=== PATIENT | male | born 1985 | race Caucasian/White ===

== ENCOUNTER 2018-07-11 12:31 | Emergency (ER) | payer OTHER ==
[2018-07-11] MEDS ORDERED: TETANUS/DIPHTHERIA/PERTUSSIS 0.5 ML SYRINGE IM ONE (12:47)
[2018-07-11] MEDS ORDERED: BACITRACIN OINT TOP STA (12:56)
--- NOTE | 2018-07-11 12:59 | ED Physician Documentation ---
PD HPI UPPER EXT INJURY - Stated complaint Stated Complaint: RT HAND THUMB LAC - Chief complaint Chief Complaint: Ext Problem - History obtained from History obtained from: Patient - History of Present Illness Location: Right, Finger (thumb) Where injury occurred: Home Timing - onset: How many hours ago (1) Timing - duration: Hours (1) Timing - details: Abrupt onset Pain level max: 5 Pain level now: 4 Improved by: Rest Worsened by: Moving, Palpating Associated symptoms: No: Weakness, Numbness, Tingling, Swelling Recently seen: Not recently seen - Additonal information Additional information: Unknown last tetanus shot. A sprain came off of his car that he was working on, it is approximately 1 month old and fishhook to through his thumb. Review of Systems Constitutional: denies: Fever Neurologic: denies: Focal weakness, Numbness PD PAST MEDICAL HISTORY - Past Medical History Past Medical History: No - Past Surgical History Past Surgical History: No - Present Medications Home Medications: Ambulatory Orders Medication Instructions Recorded Confirmed Cephalexin [Keflex] 500 mg PO Q6H #28 capsule 07/11/18 - Allergies Allergies/Adverse Reactions: Allergies Allergy/AdvReac Type Severity Reaction Status Date / Time nickel Allergy Rash Verified 07/11/18 12:37 - Social History Does the pt have substance abuse?: No - Family History Family history: reports: Non contributory - Immunizations Immunizations are current?: No Immunizations: TDAP current <10years PD ED PE NORMAL - Vitals Vital signs reviewed: Yes - General General: Alert and oriented X 3, No acute distress - Derm Derm: Warm and dry - Extremities Extremities: Other (R thumb - puncture wound. NVI. FROM without pain. ) - Neuro Neuro: Alert and oriented X 3 Results - Vitals Vitals: Vital Signs - 24 hr 07/11/18 12:34 Temperature 36.7 C Heart Rate 79 Respiratory 14 Rate Blood Pressure 166/94 H O2 Saturation 98 Oxygen O2 Source Room air PD MEDICAL DECISION MAKING - ED course Complexity details: considered differential, d/w patient ED course: Left thumb, puncture wound to the nail. Minimal bleeding. Full range of motion without pain. The wound was cleansed, irrigated, bandaged. Will place on oral Keflex. Tdap given. Patient counseled regarding signs and symptoms for which I believe and urgent re-evaluation would be necessary. Patient with good understanding of and agreement to plan and is comfortable going home at this time This document was made in part using voice recognition software. While efforts are made to proofread this document, sound alike and grammatical errors may occur. Departure - Departure Disposition: 01 Home, Self Care Clinical Impression: Puncture wound of finger of left hand Qualifiers: Encounter type: initial encounter Qualified Code(s): S61.239A - Puncture wound without foreign body of unspecified finger without damage to nail, initial encounter Condition: Good Instructions: ED Wound Puncture General Follow-Up: your,doctor in 1 week for wound check [Other] Prescriptions: Cephalexin [Keflex] 500 mg PO Q6H #28 capsule Comments: Take all antibiotics until gone. Return if you worsen. Follow-up with your doctor within 1 week for a wound check. Return sooner if you notice redness, swelling or drainage from the wound. Change the dressing twice daily. Keep area clean. Discharge Date/Time: 07/11/18 13:09
[2018-07-11 14:23] VITALS: BP 166/94
== END 2018-07-11 13:09 | disposition home or self-care (01) ==
LOC: ED 12:31
DX: S61.031A Puncture wound without foreign body of right thumb without damage to nail, initial encounter (principal); W26.8XXA Contact with other sharp object(s), not elsewhere classified, initial encounter; Y93.9 Activity, unspecified; Y92.009 Unspecified place in unspecified non-institutional (private) residence as the place of occurrence of the external cause
CPT/HCPCS: 90471; 90715; 99283; A9270

== ENCOUNTER 2019-02-04 14:51 | Emergency (ER) | payer OTHER ==
[2019-02-04 14:58] VITALS: BP 161/114
--- NOTE | 2019-02-04 15:34 | ED Physician Documentation ---
History of Present Illness - Stated complaint Stated Complaint: DENTAL/MOUTH PX - Chief complaint Chief Complaint: Heent - Additonal information Additional information: This is a 33-year-old male Who presents with some pain in his right posterior molar. He states he had a lump in the back right of his mouth for quite a while ever since he had some wisdom tooth removed in the side you know. He started feeling a sharp fragment in the back of his mouth in the last several days, [place] and he has been on those see a dentist as of yet. He wanted to get it checked out today because he is worried that the fragment might break loose and he might swallow it. Review of Systems Constitutional: denies: Fever Throat: reports: Dental pain / toothache. denies: Sore throat PD PAST MEDICAL HISTORY - Past Surgical History Past Surgical History: No - Present Medications Home Medications: Ambulatory Orders Medication Instructions Recorded Confirmed Amox/Clav 875/125 [Augmentin] 1 each PO Q12H #14 tablet 02/04/19 Omeprazole 20 mg PO 02/04/19 02/04/19 Telmisartan [Micardis] 20 mg PO 02/04/19 - Allergies Allergies/Adverse Reactions: Allergies Allergy/AdvReac Type Severity Reaction Status Date / Time nickel Allergy Rash Verified 02/04/19 14:58 - Social History Does the pt smoke?: No Smoking Status: Never smoker Does the pt drink ETOH?: Yes Does the pt have substance abuse?: No - Immunizations Immunizations are current?: No Immunizations: TDAP current <10years PD ED PE NORMAL - General General: Alert and oriented X 3 - HEENT HEENT: Atraumatic, Pharynx benign, Other (There is a 0.5cm Area of erythema and swelling just inferior to the back posterior molar. Using a Q-tip I am actually able to remove a very small white thin fragment which is 1 x 2 mm. There is possibly is a tooth fragment. There is no pus or signs of other fragments below this on my exam. Patient has normal range of motion of his jaw, no facial swelling, normal range of motion of neck.) - Cardiac Cardiac: RRR - Respiratory Respiratory: No respiratory distress Results - Vitals Vitals: Oxygen O2 Source Room air PD MEDICAL DECISION MAKING - ED course Complexity details: considered differential (ascbess, foreign body, retained tooth fragment, gingival inflammation/infection) ED course: On exam pt has a visible small shard of what appears to be tooth fragment that was able to be removed with a cotton swab. There is some swelling and induration in the area where the fragment was, but no fluctuance or purulent drainage. I discussed antibiotics and close dental follow up, if his symtpoms are not improving he may have further fragments or an abscess. Pt agrees with this plan and will follow with his dentist this week. He was discharged home. Departure - Departure Disposition: Home, Self Care Clinical Impression: Pain, dental Condition: Good Prescriptions: Amox/Clav 875/125 [Augmentin] 1 each PO Q12H #14 tablet Comments: We pulled what appears to be a fragment of tooth out of your gum today. The area around it is somewhat inflamed but I am not sure if this is just secondary to the fragment, or if there is something deeper present, or if this is a mild infection in the area. I am prescribing an antibiotic, but if you are able to see a dentist tomorrow please discuss with them whether this is necessary or if they would recommend other treatment. If you develop worsening symptoms such as increasing swelling in your mouth, pus draining from the area, or any other concerning symptoms return to the emergency department. Discharge Date/Time: 02/04/19 16:05
== END 2019-02-04 16:05 | disposition home or self-care (01) ==
LOC: ED 14:51
DX: K08.89 Other specified disorders of teeth and supporting structures (principal)
CPT/HCPCS: 99282; 99283

== ENCOUNTER 2020-11-30 17:44 | Emergency (ER) | payer OTHER ==
[2020-11-30 17:56] VITALS: BP 150/90
[2020-11-30] MEDS ORDERED: CEPHALEXIN 250 MG Prepack 8 CAP BOTTLE PO STA (18:04)
--- NOTE | 2020-11-30 18:05 | ED Physician Documentation ---
PD HPI WOUND RECHECK - Stated complaint Stated Complaint: INFECTED BITE - Chief complaint Chief Complaint: Wound - Histroy obtained from History obtained from: Patient - Additional information Additional information: 35-year-old gentleman may have sustained a bite or small wound while gardening 2 days ago and now some swelling in that area on the left forearm. No fevers. Review of Systems Constitutional: reports: Reviewed and negative Eyes: reports: Reviewed and negative Ears: reports: Reviewed and negative Throat: reports: Reviewed and negative PD PAST MEDICAL HISTORY - Past Medical History Past Medical History: Yes Cardiovascular: Hypertension Respiratory: None Neuro: None Endocrine/Autoimmune: None GI: GERD : None HEENT: None Psych: None Musculoskeletal: None Derm: None - Past Surgical History Past Surgical History: Yes - Present Medications Home Medications: Ambulatory Orders Medication Instructions Recorded Confirmed Omeprazole 20 mg PO DAILY 02/04/19 11/30/20 Telmisartan [Micardis] 20 mg PO DAILY 02/04/19 11/30/20 cephALEXin [Keflex] 500 mg PO Q6H #28 cap 11/30/20 - Allergies Allergies/Adverse Reactions: Allergies Allergy/AdvReac Type Severity Reaction Status Date / Time nickel Allergy Rash Verified 11/30/20 17:53 - Social History Does the pt smoke?: No Smoking Status: Never smoker Does the pt drink ETOH?: Yes Does the pt have substance abuse?: No - Immunizations Immunizations are current?: Yes Immunizations: TDAP current <10years PD ED PE NORMAL - Vitals Vital signs reviewed: Yes - General General: Alert and oriented X 3, No acute distress - Derm Derm: Other (There is a tiny lesion could be an abscess, but measures less than 1 mm around on the radial side of the distal left forearm with about a surrounding centimeter of cellulitis. No evidence of lymphangitis.) - Neuro Neuro: Alert and oriented X 3, Normal speech Results - Vitals Vitals: Vital Signs - 24 hr 11/30/20 17:53 Temperature 36.5 C Heart Rate 76 Respiratory 16 Rate Blood Pressure 150/90 H O2 Saturation 98 Oxygen O2 Source Room air Departure - Departure Disposition: 01 Home, Self Care Clinical Impression: Left arm cellulitis Condition: Good Record reviewed to determine appropriate education?: Yes Instructions: Cellulitis Dc Prescriptions: cephALEXin [Keflex] 500 mg PO Q6H #28 cap Comments: Return or follow-up with your doctor if you worsen.
== END 2020-11-30 18:12 | disposition home or self-care (01) ==
LOC: ED 17:44
DX: L03.114 Cellulitis of left upper limb (principal)
CPT/HCPCS: 99282; 99283

== ENCOUNTER 2021-01-30 10:11 | Emergency (ER) | payer OTHER ==
--- NOTE | 2021-01-30 10:59 | ED Physician Documentation ---
PD HPI UPPER EXT INJURY - Stated complaint Stated Complaint: LAC R THUMB - Chief complaint Chief Complaint: Laceration - History obtained from History obtained from: Patient - History of Present Illness Location: Right, Finger (thumb) Type of injury: Laceration Where injury occurred: Home Pain level max: 3 Pain level now: 2 Improved by: Rest Worsened by: Moving, Palpating Contributing factors: No: Anticoagulated - Additonal information Additional information: 35-year-old male states he was pushing the garbage bag down in the trash can when something cut his right thumb. Tetanus up-to-date. No active bleeding. Nothing makes it better or worse. Review of Systems Constitutional: denies: Fever PD PAST MEDICAL HISTORY - Past Medical History Past Medical History: Yes Cardiovascular: Hypertension Respiratory: None Neuro: None Endocrine/Autoimmune: None GI: GERD : None HEENT: None Psych: None Musculoskeletal: None Derm: None - Past Surgical History Past Surgical History: Yes - Present Medications Home Medications: Ambulatory Orders Medication Instructions Recorded Confirmed Omeprazole 20 mg PO DAILY 02/04/19 01/30/21 Telmisartan [Micardis] 20 mg PO DAILY 02/04/19 01/30/21 - Allergies Allergies/Adverse Reactions: Allergies Allergy/AdvReac Type Severity Reaction Status Date / Time nickel Allergy Rash Verified 01/30/21 10:20 - Social History Does the pt smoke?: No Smoking Status: Never smoker Does the pt drink ETOH?: Yes Does the pt have substance abuse?: No - Immunizations Immunizations are current?: Yes Immunizations: TDAP current <10years PD ED PE NORMAL - Vitals Vital signs reviewed: Yes - General General: Alert and oriented X 3, No acute distress - Derm Derm: Warm and dry - Extremities Extremities: Other (Wound was cleansed and bandaged over the right thumb. Distal aspect. There is a small flap, it is already adhered. No further bleeding. Neurovascular intact.) - Neuro Neuro: Alert and oriented X 3 Results - Vitals Vitals: Vital Signs - 24 hr 01/30/21 01/30/21 10:17 11:31 Temperature 36.3 C L Heart Rate 71 75 Respiratory 16 16 Rate Blood Pressure 144/96 H 142/71 H O2 Saturation 97 98 Oxygen O2 Source Room air Procedures - Laceration (location) Right thumb Length in cm: 1 Wound type: Curved, Flap, Superficial Neurovascular status: Sensory intact, Motor intact, Vascular intact Tendon involvement: Tendon intact Wound preparation: Irrigated copiously NS Skin layer closure: Dermabond Other: Patient tolerated well, No complications, Neurovascular intact, Dressing applied, Tetanus UTD PD MEDICAL DECISION MAKING - ED course Complexity details: considered differential, d/w patient ED course: Laceration repaired with Dermabond. No active bleeding. Tetanus up-to-date. Warnings of infection and instructions on wound care given at bedside. Also counseled on how to minimize scarring. Patient counseled regarding signs and symptoms for which I believe and urgent re-evaluation would be necessary. Patient with good understanding of and agreement to plan and is comfortable going home at this time This document was made in part using voice recognition software. While efforts are made to proofread this document, sound alike and grammatical errors may occur. Departure - Departure Disposition: 01 Home, Self Care Clinical Impression: Thumb laceration Qualifiers: Encounter type: initial encounter Damage to nail status: without damage Foreign body presence: without foreign body Laterality: right Qualified Code(s): S61.011A - Laceration without foreign body of right thumb without damage to nail, initial encounter Condition: Good Instructions: ED Laceration Hand Follow-Up: your,doctor as needed [Other] Comments: You can wear the splint for the next 1 to 2 days to help protect the tip of the finger from any damage. The glue will fall off on its own. Return if you notice redness, swelling or drainage from the wound. Discharge Date/Time: 01/30/21 11:33
[2021-01-30 11:33] VITALS: BP 142/71
== END 2021-01-30 11:33 | disposition home or self-care (01) ==
LOC: ED 10:11
DX: S61.011A Laceration without foreign body of right thumb without damage to nail, initial encounter (principal); W26.9XXA Contact with unspecified sharp object(s), initial encounter; Y93.E9 Activity, other interior property and clothing maintenance; Y92.009 Unspecified place in unspecified non-institutional (private) residence as the place of occurrence of the external cause
CPT/HCPCS: 12001; 99281

== ENCOUNTER 2022-01-11 13:47 | Outpatient (CLI) | payer OTHER ==
--- NOTE | 2022-01-11 16:04 | MRI Report ---
PROCEDURE: FOOT WO - LT INDICATIONS: FOOT PAIN TECHNIQUE: Noncontrast sagittal T1 spin echo and T2 fast spin echo with fat saturation, long-axis T1 spin echo a nd T2 fast spin echo with fat saturation, short-axis proton density fast spin echo and T2 fast spin e cho with fat saturation through the forefoot. COMPARISON: None. FINDINGS: Image quality: Excellent. Bones and joints: No bone marrow contusions or metatarsal stress fractures. The sesamoid bones appe ar in expected positions, without internal edema. No metatarsophalangeal joint degeneration. No int raosseous lesions. There is some mild degenerative change involving the first tarsal metatarsal joint. Soft tissues: The visualized plantar foot muscles demonstrate normal signal and bulk. Visualized fl exor and extensor tendons appear intact, without tenosynovitis. No soft tissue ganglion cysts or bur aurelia fluid collections. Sagittal images demonstrate no evidence for plantar plate tears. 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 Reviewed by: Dell Moseley MD on 01/11/2022 4:02 PM PST Approved by: Dell Moseley MD on 01/11/2022 4:02 PM PST Station ID: [id number]
== END 2022-01-11 13:48 | disposition home or self-care (01) ==
LOC: DI 13:47
PROVIDERS: ATTEND Student in an Organized Health Care Education/Training Program
DX: M19.072 Primary osteoarthritis, left ankle and foot (principal)